=== PATIENT | male | born 1965 | race Caucasian/White ===

== ENCOUNTER → 2016-09-27 10:15 | Outpatient (CLI) | payer BC | END | disposition home or self-care (01) | LOC: D.US 10:15 | DX: R10.11 Right upper quadrant pain (principal) ==

== ENCOUNTER → 2016-10-06 07:26 | Outpatient (CLI) | payer BC | END | disposition home or self-care (01) | LOC: D.NM 07:26 | DX: R93.8 Abnormal findings on diagnostic imaging of other specified body structures (principal) ==

== ENCOUNTER 2017-04-28 11:10 | Observation (INO) | payer BC ==
--- NOTE | ~2017-04-28 | HP ---
PATIENT: EFRAIN GARCIA MEDICAL RECORD: [id number] ACCOUNT: [id number] LOCATION:[address] : [birth year] ADMISSION DATE: 04/28/17 HISTORY AND PHYSICAL EXAMINATION DATE OF ADMISSION: 04/28/2017 CHIEF COMPLAINT: Substernal chest pain. HISTORY OF PRESENT ILLNESS: The patient is a 51-year-old gentleman who states since last Tuesday, he has developed substernal chest pain. He has had nausea. He has had some diaphoresis. Apparently, he had been given a nitroglycerin, the pain did relieve, he presented to the Emergency Room for evaluation. PAST MEDICAL HISTORY: Significant for having had an appendectomy, he has had a left rotator cuff. FAMILY HISTORY: Father has a history of coronary artery bypass grafting. Mother has allergic rhinitis. HABITS: None. SOCIAL HISTORY: The patient was born and raised in [facility]. He is 2 years college educated, is , and a father of 2. 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 He also works in the [employer]. MEDICATIONS: None. ALLERGIES: None. REVIEW OF SYSTEMS: CONSTITUTIONAL: He denies any headaches, seizures, or syncope. Denies change in visual or auditory acuity. PULMONARY: He denies any shortness of breath, cough, congestion, history of TB, asthma or bronchitis. CARDIOVASCULAR: Had no chest pain, palpitation, PND, orthopnea. GASTROINTESTINAL: No chronic nausea, vomiting, melena, or hematochezia. GENITOURINARY: No urgency, frequency, or dysuria. PHYSICAL EXAMINATION: GENERAL: He is alert. He is oriented times 3. VITAL SIGNS: His temperature is 99.2, his pulse is 84, respirations 18, blood pressure 150/91. HEENT: Head is normocephalic. No lesions. Ears: TMs clear. Eyes: Pupils are equal, round and reactive to light. His extraocular movements are intact. His nasal cavity, oral cavity, oropharynx clear. NECK: Supple. There is no adenopathy. HEART: Has a regular rate and rhythm without any murmurs, gallops, or rubs. LUNGS: Clear. ABDOMEN: Soft, bowel sounds are positive. No organomegaly. GENITAL: Deferred. RECTAL: Deferred. LABORATORY DATA: White count was elevated 11.3, hemoglobin 14.5, hematocrit 43.2, and platelets are 260. Sodium 136, potassium 3.7, chloride 102, CO2 is HISTORY AND PHYSICAL [id number] JOSEVALERIAEFRAIN E 24, BUN 9, creatinine 1, glucose 120 nonfasting. Liver function is normal. Cardiac enzymes were unremarkable. The patient had a chest x-ray. Chest x-ray revealed no cardiomegaly, no active infiltrates. He had an EKG showing normal sinus rhythm, rate is approximately 78, no ST-T wave changes. ASSESSMENT: Substernal chest pain, possible angina. PLAN: The patient is admitted. We will cycle his cardiac enzymes. Also, cardiology consultation will be obtained for possible cardiac catheterization. TRANSINT:[id number] Voice Confirmation ID: [id number] DOCUMENT ID: [id number] STEVENSON OLIVA MD at 0645 CC: [id number] DICTATION DATE: 04/28/171802 REDEVELOPMENT SPECIALIST: 04/28/17 182 DIS IN 04/29/17 [facility] [address] [place] [address]
--- NOTE | ~2017-04-28 | EC ---
PATIENT:EFRAIN GARCIA DATE OF SERVICE: 04/28/17 SEX: M MEDICAL RECORD: [id number] DATE OF : 65 LOCATION:D.M2 D.211 AGE OF PATIENT: 51 ADMISSION DATE: 04/28/17 REFERRING PHYSICIAN: INTERPRETING PHYSICIAN: NIDA LOYA MD ECHOCARDIOGRAM REPORT ECHO CHARGES 4 ECHO COMPLETE CLINICAL DIAGNOSIS: CHEST PAIN ECHOCARDIOGRAPHIC MEASUREMENTS (adult normal given) AC root (d.<3.7cm) 3.2 cm LV Septum d (<1.2 cm> 1.5 cm Valve Excursion 1.5 cm LV Septum (systole) 1.8 cm Left Atria (s.<4.0cm> 3.8 cm LVPW d(<1.2cm) 1.7 cm RV (d.<2.3cm) 5.7 cm LVPW (sytole) 2.0 cm LV diastole(<5.6CM) 5.8 cm MV E-F(>70mm/sec) cm LV systole 3.3 cm LVOT Diameter 2.1 cm MV exc.(>10mm) 2.2 cm Est.ejection fraction (50-75%) % Pericardial Effusion N DOPPLER: LVIT cm/sec A 63.0 cm/sec E 85.0 cm/sec LA cm/sec RVSP 26 mmHg LVOT 102 cm/sec AOP1/2T m/s Asc. Ao 128 cm/sec RVOT 69 cm/sec RA cm/sec PA 106 cm/sec AV Gradient Peak 6.59 mmHg AV Mean 2.69 mmHg AV Area 2.5 cm MV Gradient Peak 2.70 mmHg MV Mean 1.17 mmHg MV Area cm COMMENTS: Inspector Precision: Hao CAZARES Patent Law Specialist: Trey Loya TAPE# PACS DATE OF SERVICE: 04/29/2017 PROCEDURE: Transthoracic echocardiogram. FINDINGS: 1. The left ventricle shows normal size, normal function with trace to mild left ventricular hypertrophy. Inflow characteristics are normal. Left atrium is normal. 2. The aortic valve is normal. 3. The mitral valve is normal. ECHOCARDIOGRAM REPORT [id number] EFRAIN GARCIA 4. The tricuspid valve is normal. 5. Normal right ventricular systolic pressures. 6. The right ventricle is mildly dilated. 7. The right atrium is poorly visualized. CONCLUSION: The patient has normal echocardiogram for age with mild indication of dilatation of the right ventricle. TRANSINT:[id number] Voice Confirmation ID: [id number] DOCUMENT ID: [id number] NIDA LOYA MD at 1214 CC: [id number] DICTATION DATE: 04/29/172115 ALTERATION SPECIALIST: 04/30/17 0117 DIS IN 04/29/17 [facility] [address] [place] [address]
--- NOTE | ~2017-04-28 | DS ---
PATIENT:EFRAIN GARCIA :65 MEDICAL RECORD: [id number] DISCHARGE SUMMARY ADMISSION DATE: 04/28/17 DISCHARGE DATE: 04/29/17 DATE OF ADMISSION: 04/28/2017. DATE OF DISCHARGE: 04/29/2017. ADMISSION DIAGNOSES: Substernal chest pain, anginal equivalent. HOSPITAL COURSE: The patient was admitted to the ER after having substernal chest pain, took a sublingual nitroglycerin prior to arrival with reported relief of symptoms. Enzymes were cycled and remained negative. Cardiology consulted with patient's presentation. The patient was taken to the cardiovascular lab director, had a normal cardiac catheterization, cleared for discharge this afternoon. The patient's symptoms have resolved. Chart reviewed. DISPOSITION: The patient is discharged in significantly improved condition. DISCHARGE MEDICATIONS: Per med rec. FOLLOWUP: The patient will follow up with Dr. Sanchez within the next 10 days and as needed. See chart for further details. TRANSINT:[id number] Voice Confirmation ID: [id number] DOCUMENT ID: [id number] SHAYE WILCOX DO at 1158 CC: [id number] DICTATION DATE: 04/29/17 1116 STAFFING PROGRAM MANAGER: 04/30/17 0110 DIS IN 04/29/17 [id number] [place] [address]
--- NOTE | ~2017-04-28 | HEMODYNAMI ---
PATIENT:EFRAIN GARCIA MEDICAL RECORD: [id number] : 65 LOCATION:[facility] D.2114 ADMISSION DATE: 04/28/17 Generatedon:04/29/20178:24 Patient name: EFRAIN GARCIA Patient #: [id number] SSN: DO B: 1965 Date of study: 04/29/2017 Page: Of Hemodynamic Procedure Report Patient Data Patient Demographics Procedure consent was obtained First Name: EFRAIN Gender: Male Last Name: JOSE : 1965 Middle Initial: E Age: 51 year(s) Patient #: [id number] Race: Unknown Additional ID: [id number] Contact details [address]: [address] [place] [address] State: [place] City: [place] Zip code: [address] Admission Admission Data Admission Date: 04/28/2017 Admission Time: 13:20 Room #: 2114 Procedure Procedure Types Cath Procedure Diagnostic Procedure C LH w/Coronaries Sedation Charges Moderate Sedation up to 15 minutes Procedure Description Procedure Date Procedure Date: 04/29/2017 Procedure Start Time: 8:05 Procedure End Time: 8:23 Procedure Staff Name Function Mono Bolton MD Performing Physician Kartik Isbell RT Monitor Rudi Bridges RN Nurse Alejandra Phoenix RT Scrub Procedure Data Cath Procedure Fluoroscopy Diagnostic fluoroscopy Total fluoroscopy Time: 3.7 time: 3.7 min min Diagnostic fluoroscopy Total fluoroscopy dose: 397 dose: 397 mGy mGy Contrast Material Contrast Material Type Amount (ml) Isovue 300 32 Entry Location Entry Primary Successful Side Size Upsize Upsize Entry Closure Rodriguez ccessful Closure Location (Fr) 1 (Fr) 2 (Fr) Remarks Device Remarks Radial Right 6 Fr Mechanical artery Short Compression Estimated blood loss: 10 ml Diagnostic catheters Device Type Used For End Catheter Placement DIAGNOSTIC Charbel 110cm Procedure 5Fr catheter ([id number]) Procedure Complications No complications Procedure Medications Medication Administration Route Dosage Oxygen NC 2 l/min Heparin Flush Bag added to field 2 bags (1000units/500ml NS) 0.9% NaCl I.V. 100 ml/hr Radial Cocktail added to field 1 syringe (Verapomil 2mg/Nitro 400mcg/Heparin 1500units) Fentanyl I.V. 50 mcg Versed I.V. 1 mg Versed I.V. 1 mg Radial Cocktail I.A. 1 syringe (Verapomil 2mg/Nitro 400mcg/Heparin 1500units) Fentanyl I.V. 50 mcg Hemodynamics Rest Heart Rate: 53 (bpm) Pressure Samples Time Site Value (mmHg) Purpose Heart Use Rate(bpm) 8:13 LV 100/9,11 EDP 70 8:13 LV 100/9,11 Snapshot 69 8:13 LV 106/53,77 Snapshot 64 Snapshots Pre Cath Intra NCS Post Cath Vital Signs Time Heart Resp SPO2 etCO2 NIBP (mmHg) Rhythm Pain Sedation Rate (ipm) (%) (mmHg) Status Level (bpm) 7:51:11 57 17 99 0 154/78(109) NSR 0 (11) 10(A) , No pain 7:56:34 56 16 99 0 144/84(106) NSR 0 (11) 10(A) , No pain 8:01:13 54 15 95 0 121/79(98) NSR 0 (11) 9(A) , No pain 8:05:49 62 15 96 0 121/77(94) NSR 0 (11) 9(A) , No pain 8:10:28 67 16 96 0 117/76(95) NSR 0 (11) 9(A) , No pain 8:15:06 65 15 95 0 106/71(87) NSR 0 (11) 9(A) , No pain 8:18:52 60 18 95 0 113/68(83) NSR 0 (11) 9(A) , No pain Medications Time Medication Route Dose Verified Delivered Reason Notes E ffectiveness by by 7:57:40 Oxygen NC 2 l/min Mono Rudi Per Che Bridges RN physician 7:58:41 Heparin Flush added 2 bags Mono Grijalva used for Bag to Che Bridges RN procedure (1000units/500ml field RIGGS NS) 7:59:03 0.9% NaCl I.V. 100 Mono Rudi Per ml/hr Che Bridges RN physician 7:59:11 Radial Cocktail added 1 Mono Rudi used for (Verapomil to syringe Che Bridges RN procedure 2mg/Nitro field MD 400mcg/Heparin 1500units) 7:59:19 Fentanyl I.V. 50 mcg Mono Rudi for sedation Che Bridges RN, MD 7:59:27 Versed I.V. 1 mg Mono Rudi for sedation Che Bridges RN, MD 8:07:47 Versed I.V. 1 mg Mono Rudi for sedation Che Bridges RN, MD 8:10:08 Radial Cocktail I.A. 1 Mono Mono for (Verapomil syringe Che Bolton MD vasodilation 2mg/Nitro MD 400mcg/Heparin 1500units) 8:15:57 Fentanyl I.V. 50 mcg Mono Mono for sedation Che Bolton MD, MD Procedure Log Time Note 7:30:02 Rudi Bridges RN sent for patient. Start room use. 7:34:04 Time tracking: Regular hours 7:34:07 Plan of Care:Hemodynamics will remain stable., Cardiac rhythm will remain stable., Comfort level will be maintained., Respiratory function will remain adequate., Patient/ family verbilizes understanding of procedure., Procedure tolerated without complication., Recovers from procedure without complications.. 7:44:01 Patient received from PCU to CCL 1 Alert and oriented. Tansferred to table in Supine position. 7:44:02 Warm blankets applied, and elizabeth hugger turned on for patient comfort. 7:44:03 Correct patient and procedure confirmed by team. 7:44:04 Signed procedure consent form obtained from patient. 7:44:05 ECG and BP/O2 sat monitors applied to patient. 7:44:06 Full Disclosure recording started 7:49:17 Vital chart was started 7:55:12 Baseline sample Acquired. 7:55:17 Rhythm: sinus bradycardia 7:55:22 H&P Date Dictated: 04/29/2017 Within 30 days and on chart.. 7:55:24 Pre-procedure instructions explained to patient. 7:55:25 Pre-op teaching completed and patient verbalized understanding. 7:55:26 Family in patients room. 7:55:27 Patient NPO since Midnight. 7:55:29 Is the patient allergic to Iodine/contrast media? No. 7:55:31 Is patient on blood thinner?Yes 7:55:35 ACC The patient was administered the following blood thiners within the last 24 hours: ACCPlavix 7:55:37 Patient diabetic? No. 7:56:59 Previous problem with sedation/anesthesia? No ? 7:57:00 Snore? Yes 7:57:01 Sleep apnea? No 7:57:02 Deviated septum? No 7:57:04 Opens mouth fully? Yes 7:57:05 Sticks out tongue? Yes 7:57:07 Airway obstruction? No ? 7:57:10 Dentures? No ? 7:57:14 Pre procedure: right dorsailis pedis pulse 1+ Palpable, but thready & weak; easily obliterated 7:57:16 Modified John's test Ulnar < 7 seconds 7:57:18 Patient pain scale 0/10 ?. 7:57:32 IV patent on arrival in right antecubital with 0.9% NaCl at KVO. 7:57:35 Lab results completed and on chart. 7:57:40 Oxygen 2 l/min NC was administered by Rudi Bridges RN; Per physician; 7:57:59 Right Radial & Right Groin area was prepped with chlora-prep and draped in sterile fashion 7:58:01 Alarms reviewed by R. N. 7:58:01 Sharps counted by scrub and verified by R.N. 7:58:03 --------ALL STOP TIME OUT------ 7:58:03 Final Timeout: patient, procedure, and site verified with staff and physician. All members of the team are in agreement. 7:58:05 Right Radial & Right Groin site verified by team. 7:58:08 Physical assessment completed. ASA score P 2 - A patient with mild systemic disease as per Mono Bolton MD. 7:58:12 Sedation plan: IV Moderate Sedation Medication:Versed, Fentanyl 7:58:41 Heparin Flush Bag (1000units/500ml NS) 2 bags added to field was administered by Rudi Bridges RN; used for procedure; 7:59:03 0.9% NaCl 100 ml/hr I.V. was administered by Rudi Bridges RN; Per physician; 7:59:11 Radial Cocktail (Verapomil 2mg/Nitro 400mcg/Heparin 1500units) 1 syringe added to field was administered by Rudi Bridges RN; used for procedure; 7:59:19 Fentanyl 50 mcg I.V. was administered by Rudi Bridges RN; for sedation; 7:59:27 Versed 1 mg I.V. was administered by Rudi Bridges RN; for sedation; 8:02:02 Use device set Radial Dx or PCI 8:02:07 ACIST Manifold (34464) opened to sterile field. 8:02:08 Tegaderm 4 x 4 (1626W) opened to sterile field. 8:02:09 ACIST Hand Control (03246) opened to sterile field. 8:02:10 ACIST Syringe (31681) opened to sterile field. 8:02:11 Medline Cath Pack ([id number]) opened to sterile field. 8:02:11 Bag Decanter (2002S) opened to sterile field. 8:02:12 SHEATH 6FR Slender ([id number]) opened to sterile field. 8:02:12 DIAGNOSTIC WIRE .035 260cm J wire (850006) opened to sterile field. 8:02:13 MBrace Wrist Support ([id number]) opened to sterile field. 8:05:53 Procedure started. 8:05:59 Local anesthetic to right radial artery with Lidocaine 2% by Mono Bolton MD.INITIAL ACCESS ONLY 8:06:49 Zero performed for pressure channel P1 8:07:47 Versed 1 mg I.V. was administered by Rudi Bridges RN; for sedation; 8:09:25 A 6 Fr Short sheath was inserted into the Right Radial artery 8:10:08 Radial Cocktail (Verapomil 2mg/Nitro 400mcg/Heparin 1500units) 1 syringe I.A. was administered by Mono Bolton MD; for vasodilation; 8:10:19 A DIAGNOSTIC Charbel 110cm 5Fr catheter (087259) was advanced over the wire and used for Procedure. 8:13:40 LV angiography performed. 8:13:45 LV gram done using BRUCE 8:13:51 EF : 60 % 8:14:02 LV hemodynamics recorded. 8:14:07 Injector settings: Ml/sec: 3, Volume: 6, 8:15:08 RCA angiography performed. 8:15:54 LCA angiography performed. 8:15:57 Fentanyl 50 mcg I.V. was administered by Mono Bolton MD; for sedation; 8:16:44 Catheter removed. 8:17:14 TR BAND Standard ([id number]) opened to sterile field. 8:17:38 Sheath removed intact; hemostasis achieved with Mechanical Compression to the Right Radial artery. 8:17:45 Procedure ended.(Physican Out) 8:17:58 Fluoroscopy time 03.70 minutes. 8:18:03 Fluoroscopy dose: 397 mGy 8:18:03 Flurop Dose total: 397 8:18:07 Contrast amount:Isovue 300 32ml. 8:18:09 Sharps counted by scrub and verified by R.N. 8:18:13 TR band inflated with 12cc of air. 8:18:15 Insertion/operative site no bleeding no hematoma. 8:18:17 Post Procedure Pulses reassessed and unchanged 8:18:19 Post-procedure physical assessment completed. ASA score P 2 - A patient with mild systemic disease as per Mono Bolton MD. 8:18:22 Post procedure rhythm: unchanged. 8:18:24 Estimated blood loss: 10 ml 8:18:26 Post procedure instruction explained to patient.Patient verbalizes understanding. 8:18:26 Patient needs reinforcement of post procedure teaching. 8:19:11 Procedure type changed to Cath procedure, Diagnostic procedure, LHC, LHC w/Coronaries, Sedation Charges, Moderate Sedation up to 15 minutes 8:19:17 Procedure Complication : No complications 8:20:21 Procedure and supply charges have been captured, reviewed, submitted and are correct. 8:21:47 Vital chart was stopped 8:21:48 See physician's report for complete and final results. 8:23:18 Report given to PCU. 8:23:21 Patient transfered to PCU with Bed. 8:23:23 Procedure ended. 8:23:23 Full Disclosure recording stopped 8:23:30 End room use (Document Last) Device Usage Item Name Manufacture Quantity Catalog Hospital Part Current Minima l Lot# / Number Charge Number Stock Stock Serial# Code ACIST Acist 1 62170 214811 952701 947517 5 Manifold Medical (90008) Systems Inc Tegaderm 4 x 3M 1 1626W 243932 268223 903742 5 4 (1626W) ACIST Hand Acist 1 37090 287390 663343 707090 5 Control Medical (94620) Systems Inc ACIST Acist 1 76997 038631 597129 739752 20 Syringe Medical (45447) Systems Inc Medline Cath Cardinal 1 [id number] 186009 12764 517436 5 Pack Health ([id number]) Bag Decanter Microtek 1 2002S 991575 29221 060256 5 (2001S) Medical Inc. SHEATH 6FR Terumo 1 [id number] 815451 976592 602190 40 Slender ([id number]) DIAGNOSTIC St Joey 1 643174 633904 167391 664033 30 WIRE .035 260cm J wire (145117) MBrace Wrist Advanced 1 140-0250-00 588356 75261 048670 5 Support Vascular ([id number]) Dynamics DIAGNOSTIC Terumo 1 40-5695 295026 115456 984663 5 Charbel 110cm 5Fr catheter (778773) TR BAND Terumo 1 [id number] 583650 600530 807229 40 Standard ([id number]) Signature Audit Ethel Stage Time Signature Unsigned Intra-Procedure 04/29/2017 Kartik Isbell 8:24:02 AM RT(R) Signatures Monitor : Kartik Isbell RT Signature : Date : Time : [address] [place] [address]
--- NOTE | ~2017-04-28 | CN ---
PATIENT NAME:EFRAIN GARCIA MEDICAL RECORD: [id number] : 65 LOCATION:[address] ADMIT DATE: 04/28/17 ACCOUNT: [id number] CONSULTING PHYSICIAN: KEITH GOETZ MD REFERRING PHYSICIAN: STEVENSON OLIVA MD DATE OF CONSULTATION: 04/28/2017 HISTORY OF PRESENT ILLNESS: A 51-year-old gentleman with known history of coronary artery disease, does have a strong family history of coronary artery disease, has 3-day history of intermittent chest pain, waxing and waning and did have relief when given nitroglycerin by a deacon yesterday, had recurrent pain today relieved with nitroglycerin in the ER; however, this also caused lightheadedness. No syncope. Cholesterol level has been mildly elevated in the past. No set exercise program. We are asked to see him concerning his cardiovascular status. PAST MEDICAL HISTORY: Includes: 1. History of gallbladder dyskinesis. 2. Gastroesophageal reflux disease. 3. Hiatal hernia. ALLERGIES: None known. HOME MEDICATIONS: Include Vitamin D, multivitamin. 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 He is a nonsmoker and nondrinker. Easily takes care of all his ADLs. No set exercise program. REVIEW OF SYSTEMS: The patient reports easy bruising but reports no swollen glands. The patient reports no fever, no night sweats, no significant weight gain, no significant weight loss. No significant exercise tolerance. The patient reports no dry eyes, no irritation, no vision change. Patient reports no difficulty hearing and no ear pain. Patient reports no frequent nose bleeds or nose and sinus problems. Patient reports on arm pain on exertion. No shortness of breath while lying down. No history of heart murmur. Patient reports no cough, no wheezing or coughing up blood. Patient reports no abdominal pain, no vomiting. Normal appetite. No diarrhea and not vomiting blood. No nausea and no constipation. Patient reports no incontinence. No difficulty urinating. No hematuria. No increased frequency. Patient reports no muscle aches. No weakness, no arthralgias, no back pain. No swelling of the extremities. Patient reports no abnormal mole, no jaundice, no rashes. Reports no loss of consciousness. No weakness and no numbness. No seizures, dizziness, or headaches. The patient reports no depression, no sleep disturbance, feeling safe in a relationship and no alcohol abuse. Patient reports on fatigue. Reports no runny nose or sinus pressure. No itching, no hives, and no frequent sneezing. PHYSICAL EXAMINATION: GENERAL: Pleasant gentleman in no acute distress. VITAL SIGNS: 127/75, pulse 66 and regular. HEENT: Normocephalic, atraumatic. NECK: No JVD or bruit. HEART: Regular. No gallops noted. LUNGS: Good air excursion. ABDOMEN: Soft, nontender. CONSULT REPORT [id number] EFRAIN GARCIA EXTREMITIES: Pulses 2+. No edema. NEUROLOGIC: Grossly intact. DIAGNOSTIC DATA: ECG shows incomplete right bundle. IMPRESSION: Chest pain relieved with nitroglycerin. Enzymes currently are negative. PLAN: We will plan for diagnostic angiography and intervention based on above. TRANSINT:[id number] Voice Confirmation ID: [id number] DOCUMENT ID: [id number] KEITH GOETZ MD at 0919 CC: [id number] DICTATION DATE: 04/28/17 1522 ASSISTANT MANAGER BILINGUAL: 04/28/17 2231 DIS IN 04/29/17 [id number] [place] [address]
[2017-04-28 11:44] LABS: BASOPHILS 0.5 % (0-2); EOSINOPHILS 0.1 % (0-7); HEMATOCRIT 46.9 % (42.0-54.0); HEMOGLOBIN 16.2 g/dL (13.5-17.5); IMMATURE GRANULOCYTES 0.3 % (0-5); LYMPHOCYTES 13.9 % (15-50); MCH 31.1 pg (26.0-34.0); MCHC 34.5 g/dL (31.0-37.0); MEAN PLATELET VOLUME 9.7 fL (7.4-10.4); MONOCYTES 6.9 % (2-11); NEUTROPHILS 78.3 % (40-80); PLATELET COUNT 300 10x3/uL (130-400); RBC 5.21 10x6/uL (4.20-6.10); RDW 12.2 % (11.5-14.5); WBC 12.5 10x3/uL (4.8-10.8)
[2017-04-28 12:00] LABS: ALBUMIN 4.2 g/dL (3.4-5.0); ALKALINE PHOSPHATASE 50 U/L (46-116); ALT (SGPT) 54 U/L (10-68); CALC OSMOLALITY 271 mosm/kg (275-300); CALCIUM 9.2 mg/dL (8.5-10.1); CARBON DIOXIDE 24.4 mmol/L (21.0-32.0); CHLORIDE - SERUM 102 mmol/L (98-107); GLUCOSE 120 mg/dL (74-106); POTASSIUM - SERUM 3.7 mmol/L (3.5-5.1); PROTEIN - SERUM 8.1 g/dL (6.4-8.2); SODIUM 136 mmol/L (136-145); UREA NITROGEN 9 mg/dL (7-18); eGFR NON AFRICAN AMERICAN 84 mL/min (90-120)
[2017-04-28 12:11] LABS: CKMB 0.6 U/L (0.0-3.6); CREATINE KINASE 141 UL (21-232)
[2017-04-28 12:15] LABS: TROPONIN-I < 0.017 ng/mL (0.000-0.060)
[2017-04-28 14:12] VITALS: BP 127/75; BMI 17.7
[2017-04-28] MEDS ORDERED: MULTIPLE VITAMI1 TA1 PO (14:23)
[2017-04-28] MEDS ORDERED: VITAMIN D31000 UNIT PO (14:23)
[2017-04-28 15:22] VITALS: BP 127/75
[2017-04-28 16:31] VITALS: BMI 17.7
[2017-04-28 17:02] LABS: BASOPHILS 0.4 % (0-2); EOSINOPHILS 0.2 % (0-7); HEMATOCRIT 43.2 % (42.0-54.0); HEMOGLOBIN 14.5 g/dL (13.5-17.5); IMMATURE GRANULOCYTES 0.3 % (0-5); LYMPHOCYTES 17.9 % (15-50); MCH 30.7 pg (26.0-34.0); MCHC 33.6 g/dL (31.0-37.0); MCV 91.5 fL (80.0-100.0); MEAN PLATELET VOLUME 9.6 fL (7.4-10.4); MONOCYTES 7.5 % (2-11); NEUTROPHILS 73.7 % (40-80); PLATELET COUNT 260 10x3/uL (130-400); RBC 4.72 10x6/uL (4.20-6.10); RDW 12.3 % (11.5-14.5); WBC 11.3 10x3/uL (4.8-10.8)
[2017-04-28 20:59] VITALS: BP 118/75
[2017-04-29 00:36] VITALS: BP 119/70
[2017-04-29 04:08] LABS: BASOPHILS 0.4 % (0-2); EOSINOPHILS 0.6 % (0-7); HEMATOCRIT 42.3 % (42.0-54.0); HEMOGLOBIN 14.1 g/dL (13.5-17.5); IMMATURE GRANULOCYTES 0.3 % (0-5); LYMPHOCYTES 23.3 % (15-50); MCH 30.6 pg (26.0-34.0); MCHC 33.3 g/dL (31.0-37.0); MCV 91.8 fL (80.0-100.0); MEAN PLATELET VOLUME 9.6 fL (7.4-10.4); MONOCYTES 8.7 % (2-11); NEUTROPHILS 66.7 % (40-80); PLATELET COUNT 253 10x3/uL (130-400); RBC 4.61 10x6/uL (4.20-6.10); RDW 12.4 % (11.5-14.5); WBC 10.5 10x3/uL (4.8-10.8)
[2017-04-29 04:26] LABS: ALBUMIN 3.5 g/dL (3.4-5.0); ALKALINE PHOSPHATASE 40 U/L (46-116); ALT (SGPT) 46 U/L (10-68); BILIRUBIN - TOTAL 0.82 mg/dL (0.2-1.3); CALC OSMOLALITY 277 mosm/kg (275-300); CALCIUM 8.2 mg/dL (8.5-10.1); CARBON DIOXIDE 26.2 mmol/L (21.0-32.0); CHLORIDE - SERUM 106 mmol/L (98-107); GLUCOSE 109 mg/dL (74-106); POTASSIUM - SERUM 4.1 mmol/L (3.5-5.1); PROTEIN - SERUM 6.8 g/dL (6.4-8.2); SODIUM 139 mmol/L (136-145); UREA NITROGEN 9 mg/dL (7-18); eGFR NON AFRICAN AMERICAN 84 mL/min (90-120)
[2017-04-29 05:17] VITALS: BP 102/52
[2017-04-29 14:23] VITALS: BP 107/70
== END 2017-04-29 15:01 | disposition home or self-care (01) ==
LOC: D.ER 11:10 → D.M2 13:20 → OBSVTIME 13:20 → D.SDCHOLD 04-29 13:16 → D.M2 04-29 13:16
PROVIDERS: Emergency Medicine; Family Medicine; Internal Medicine Cardiovascular Disease; Internal Medicine Interventional Cardiology
DX: R07.89 Other chest pain (principal); K21.9 Gastro-esophageal reflux disease without esophagitis

== ENCOUNTER → 2017-05-12 06:19 | Outpatient (CLI) | payer BC ==
[2017-04-28 16:31] VITALS: BMI 17.7
[~2017-05-12 06:19] MED LIST: MULTIPLE VITAMI1 TA1 PO; VITAMIN D31000 UNIT PO
== END | disposition home or self-care (01) ==
LOC: D.NM 06:19
DX: R10.9 Unspecified abdominal pain (principal)